=== PATIENT | female | born 1960 | race Caucasian/White ===

== ENCOUNTER 2018-07-01 20:08 | Emergency (ER) | payer OTHER ==
[~2018-07-01] VITALS: Ht 157.5 cm; Wt 69.4 kg
[2018-07-01 20:20] VITALS: Ht 157.5 cm; Wt 69.4 kg
[2018-07-01 21:31] LABS: BASOPHIL % 0.9 % (0-2); PLATELET COUNT 241 x10^3mcL (130-400)
[2018-07-01 21:36] LABS: RED CELL DISTRIBUTION WIDTH 15.5 % (11.5-14.5)
[2018-07-01 21:43] LABS: CARBON DIOXIDE 28.8 mmol/L (21-32); CHLORIDE SERUM 106 mmol/L (98-107); CREATININE SERUM 0.8 mg/dL (0.6-1.0); GFR1 > 60 mL/min; SODIUM SERUM 140 mmol/L (136-145)
[2018-07-01 21:48] LABS: ALBUMIN 3.7 g/dL (3.4-5.0); ALKALINE PHOSPHATASE 102 U/L (46-116); ALT/SGPT 38 U/L (14-59); AST/SGOT 20 U/L (15-37); BILIRUBIN TOTAL 0.2 mg/dL (0.20-1.00)
[2018-07-01 21:52] LABS: GLUCOSE SERUM 103 mg/dL (74-106)
[2018-07-01 22:26] VITALS: BP 142/85
== END 2018-07-01 22:26 | disposition home or self-care (01) ==
LOC: ED 20:08
PROVIDERS: Emergency Medicine
DX: H11.32 Conjunctival hemorrhage, left eye (principal); R51 Headache; R05 Cough; I10 Essential (primary) hypertension; Z98.890 Other specified postprocedural states
CPT/HCPCS: 36415; Q0092

== ENCOUNTER 2018-07-01 23:40 | Emergency (ER) | payer OTHER ==
[~2018-07-01] VITALS: Ht 160 cm; Wt 69.4 kg
[2018-07-01 23:47] VITALS: Ht 160 cm; Wt 69.4 kg
[2018-07-02 03:41] VITALS: BP 150/90
== END 2018-07-02 03:41 | disposition home or self-care (01) ==
LOC: ED 23:40
DX: R42 Dizziness and giddiness (principal); T39.1X5A Adverse effect of 4-Aminophenol derivatives, initial encounter; I10 Essential (primary) hypertension; M19.90 Unspecified osteoarthritis, unspecified site; Z98.890 Other specified postprocedural states; Y92.89 Other specified places as the place of occurrence of the external cause
CPT/HCPCS: Q0162